=== PATIENT | female | born 1990 | race Caucasian/White ===

== ENCOUNTER 2021-10-02 08:00 | Outpatient (CLI) | payer OTHER ==
[2021-10-02 19:28] LABS: INFECTIOUS MONONUCLEOSIS NEGATIVE (Negative)
== END 2021-10-02 23:59 ==
LOC: LAB.N 08:00
PROVIDERS: ATTEND Physician Assistant
DX: J06.9 Acute upper respiratory infection, unspecified (principal)
CPT/HCPCS: 86308

== ENCOUNTER 2021-10-24 14:13 | Outpatient (CLI) | payer OTHER ==
--- NOTE | 2021-10-24 17:44 | XRAY Report ---
PROCEDURE: Ribs w/PA Chest LT INDICATIONS: L SIDED RIB PX TECHNIQUE: 3 views of the left ribs were acquired, along with a single view chest. COMPARISON: None FINDINGS: Surgical changes and devices: None. Bones and chest wall: No fractures or dislocations. No suspicious bony lesions. Overlying soft tis sues appear unremarkable. Lungs and pleura: No pleural effusions or pneumothorax. Lungs appear clear. Mediastinum: Mediastinal contours appear normal. Heart size is normal. IMPRESSION: No displaced left rib fracture is seen. No acute cardiopulmonary pathology. Reviewed by: Harvinder Noyola MD on 10/24/2021 5:43 PM PDT Approved by: Harvinder Noyola MD on 10/24/2021 5:43 PM PDT Station ID: [id number]
== END 2021-10-24 23:59 | disposition home or self-care (01) ==
LOC: DI.N 14:13
PROVIDERS: ATTEND Nurse Practitioner
DX: R07.81 Pleurodynia (principal)

== ENCOUNTER 2023-07-17 09:28 | Outpatient (CLI) | payer OTHER | END 2023-07-17 09:29 | disposition home or self-care (01) | LOC: SC 09:28 | PROVIDERS: ATTEND Nurse Practitioner Family | DX: R09.02 Hypoxemia (principal) | CPT/HCPCS: 95806 ==

== ENCOUNTER 2023-07-31 15:29 | Outpatient (CLI) | payer OTHER ==
--- NOTE | 2023-07-31 15:06 | SLEEP CARE CONSULTATION ---
Information from patient questionnaire entered by Celia Madison. I have reviewed and concur with the information entered by Cleia Madison. This document represents the service I personally performed and the decisions made by , Diane Melchor ARNP. History of Present Illness Service Date and Time: 07/31/2023 1500 Initial [place] Sleepiness Scale score: 11 (02/11/23) Current [place] Sleepiness Scale score: 12 () Additional HPI information: ERINN MALLORY returns via video appointment for follow up and results of the recently performed home sleep study. The patient was informed of the following findings: No significant sleep disordered breathing with an average AHI of 4.1 and earlene oxygen saturation of 87%. I explained the pathophysiology behind obstructive sleep apnea. Patient does not have sleep apnea and was advised how weight gain could increase the risk of developing sleep apnea in the future. I strongly encouraged the patient to lose weight. Patient has moderate snoring. Snoring can be reduced by weight loss. Weight loss is best achieved with diet consult. Patient instructed to contact PCP for referral. Snoring can also be treated with an oral appliance from a dentist. Advised to check insurance coverage. In addition, an ENT evaluation can be do to see if other treatment is indicated. Patient does not drink alcohol. Patient was cautioned about risks of drowsy driving until sleepiness symptoms resolve. Patient denies drowsy driving. Sleep Study - Results Type of Sleep Study: Home sleep study (COMPLETED 07/18/23) Prior sleep studies: No Polysomnography/Home Sleep Study results: Physician Impression: The quality of the study is good. The length of the study is adequate (> 240 minutes). Please also see the tabulated and graphic data. 1. No significant sleep disordered breathing, with an AHI of 4.1/hr and earlene SaO2 of 87%. During the study, the patient had 2 apneas (2 obstructive, 0 central, 0 mixed) and 20 hypopneas. The longest episode lasted 80.0 seconds. The patient slept adequately in supine position (supine AHI was 4.0 and non-supine, 4.11). 2. Hypoxemia (ICD-10 R09.02), minimal, with the lowest oxygen saturation of 87 % and 3.3 minutes with SaO2 under 90%. Baseline oxygen saturation was normal (Average oxygen saturation was 93%). Allergies and Home Medications Known drug allergies: No Drug allergies reviewed: Yes Home medication list reviewed: Yes (no changes) Allergy and home medication list: Allergies No Known Drug Allergies Allergy Home Medications Magnesium See Rx Instructions .ROUTE .COMPLEX 02/15/23 [History] Omeprazole See Rx Instructions .ROUTE .COMPLEX 02/15/23 [History] Propranolol [Inderal] See Rx Instructions .ROUTE .COMPLEX 02/15/23 [History] Sertraline [Zoloft] See Rx Instructions .ROUTE .COMPLEX 02/15/23 [History] Review of Systems Review of systems same as previous: Yes (NO CHANGE) Physical Exam Vital signs obtained and entered by: CELIA Moreno MA Height: 5 ft 6 in (PER PT) Weight: 218 lb (PER PT) Body Mass Index: 35.2 BMI Classification: Obese Impression and Plan 1. Snoring but no significant sleep disordered breathing. Patient advised that often weight loss will reduce snoring as well as apnea risk. An oral appliance can also be used for snoring. This would require a dental consultation. Patient cautioned not to use other online appliances as can cause bite issues. A list of accredited dentists in [facility] who make oral appliances is available in the office. Patient is advised to check if insurance will cover. An ENT consult can also be helpful to determine if any other treatment is an option. 2. Obesity, unspecified. Currently patients BMI is 35.2. Obesity increases the risk of apnea, CPAP pressure requirements and overall health risks especially cardiovascular and diabetes. Thus patient is advised to lose weight. * Attempt to lose weight * Avoid alcohol consumption near bedtime * The patient is cautioned about driving until sleepiness is completely resolved. * Return as needed for follow up. Counseling Topics: Weight loss health impact Follow up with Sleep Care in: as needed Visit Type: Telehealth Video Video Type: Doximity Patient Location: Home Location of Provider: Office Patient agrees and consents to this telehealth visit type: Yes Patient agrees to have their insurance billed: Yes Time Spent with Patient (minutes): 21 Provider Statement: I spent 100% of the Telehealth Video Call with the patient with greater than 50% spent counseling the patient and coordination of care.
== END 2023-07-31 15:30 | disposition home or self-care (01) ==
LOC: SC 15:29
PROVIDERS: ATTEND Nurse Practitioner Family
DX: R06.83 Snoring (principal); E66.9 Obesity, unspecified; Z68.35 Body mass index [BMI] 35.0-35.9, adult